=== PATIENT | female | born 1985 | race Two or more races ===

== ENCOUNTER → 2017-05-15 | Outpatient (CLI) | payer MEDICAID | LOC: FIMAGING 13:59 | PROVIDERS: ATTEND Family Medicine | DX: O09.92 Supervision of high risk pregnancy, unspecified, second trimester (principal); Z3A.19 19 weeks gestation of pregnancy; Z87.59 Personal history of other complications of pregnancy, childbirth and the puerperium; Z79.82 Long term (current) use of aspirin; Z98.891 History of uterine scar from previous surgery ==